=== PATIENT | female | born 1995 | race Caucasian/White ===

== ENCOUNTER → 2022-04-27 | Outpatient (CLI) | payer OTHER ==
--- NOTE | 2022-04-27 10:18 | US ---
EXAMINATION TYPE: US abdomen complete DATE OF EXAM: 04/27/2022 COMPARISON: NONE CLINICAL HISTORY: N92.0 FREQUENT MENSTRUATION, R10.84 ABDOMINAL ESTELA. Abdominal pain. TECHNIQUE: Multiple sonographic images of the abdomen are obtained. FINDINGS: EXAM MEASUREMENTS: Liver Length: 14.9 cm Gallbladder Wall: 0.15 cm CBD: Obscured Spleen: 9.8 cm Right Kidney: 10.4 x 5.3 x 3.7 cm Left Kidney: 11.3 x 4.6 x 3.6 cm SWEAT[employer] NOTES: Exam is limited due to gas. Pancreas: Tail was not well seen. Liver: Appears wnl Gallbladder: Appears wnl Evidence for sonographic Reese's sign: No CBD: Obscured Spleen: Appears wnl Right Kidney: No hydronephrosis or masses seen Left Kidney: No hydronephrosis or masses seen Upper IVC: Appears wnl Abd Aorta: Appears wnl IMPRESSION: 1. Visualized abdomen ultrasound is unremarkable.
--- NOTE | 2022-04-27 16:01 | US ---
EXAMINATION TYPE: US pelvic complete DATE OF EXAM: 04/27/2022 COMPARISON: NONE CLINICAL HISTORY: N92.0 FREQUENT MENSTRUATION, R10.84 ABDOMINAL ESTELA. Bad cramps. Menorrhagia. G0. TECHNIQUE: Transabdominal (TA). Transabdominal sonographic images of the pelvis were acquired. Tra nsvaginal sonographic images were medically necessary to better assess the following anatomy: Patient refused transvaginal exam. Date of LMP: 04/26/2022 EXAM MEASUREMENTS: Uterus: 9.4 x 5.9 x 4.5 cm Endometrial Stripe: 0.73 cm Right Ovary: 2.8 x 2.4 x 1.7 cm Left Ovary: 2.9 x 1.9 x 2.0 cm 1. Uterus: Anteverted Anechoic area seen in cervix: 0.5 x 0.9 x 0.6 cm. This can be compatible wit h nabothian cyst. 2. Endometrium: 0.73 cm. 3. Right Ovary: Appears wnl 4. Left Ovary: Appears wnl 5. Bilateral Adnexa: Appear wnl 6. Posterior cul-de-sac: Appears wnl IMPRESSION: 1. No acute pelvic ultrasound abnormality.
== END | disposition home or self-care (01) ==
LOC: RADUSWWP 08:46
PROVIDERS: ATTEND Pediatrics
DX: N92.0 Excessive and frequent menstruation with regular cycle (principal); R10.84 Generalized abdominal pain
CPT/HCPCS: 76700; 76856